=== PATIENT | male | born 1945 | race Caucasian/White ===

== ENCOUNTER 2021-01-08 11:43 | Inpatient (IN) | payer MEDICARE, MEDICAID, SELFPAY ==
[2021-01-08] VITALS (44 sets, daily range): BP systolic 71–110; BP diastolic 47–68; PULSE 49–77; RESP 9–20; TEMP 36.2–36.5; O2SAT 91–98; BMI 22.1
--- NOTE | ~2021-01-08 | CT_ITS ---
EXAMINATION: CTA abdomen pelvis DATE: 01/14/2021 08:28 INDICATION: Aortic aneurysm. Assess for dissection. Septic shock. TECHNIQUE: Computed tomographic angiography (CTA) of the abdomen and pelvis was performed with 100 mL Omnipaque-350 intravenous contrast. Additional 3D reconstructions utilizing rotating maximum intensi ty projection (MIP) were performed. Automated exposure control and iterative reconstruction technique were employed. The dose-length product was 340.48 mGy-cm. COMPARISON: 01/08/2021 FINDINGS: Small bilateral dependently layering pleural effusions with mild dependent compressive atelectasis in the bilateral lower lobes. Elevation of the left hemidiaphragm. Heart size is normal. Atheroscleroti c coronary artery calcifications. No pericardial effusion. Visualized portions of the ascending and d escending thoracic aorta are normal in caliber. Cholecystectomy clips at the gallbladder fossa. Liver , spleen, pancreas, bilateral adrenal glands and kidneys are normal. Bowels including the appendix ar e normal. Small amount of gas within the otherwise normal-appearing bladder. Correlate clinically for recent Jovel catheterization or instrumentation. No free intraperitoneal gas or fluid. No pathologic ally enlarged abdominal or pelvic lymphadenopathy. Small fat-containing left inguinal hernia. Moderat e thoracolumbar spondylosis. Chronic mild anterior wedging at T11-L1. Fusiform infrarenal abdominal aortic aneurysm measuring 4.6 x 5.0 cm in maximal transaxial dimensions measured orthogonal to the axis of flow 3.1 cm. . No aortic dissection. Penetrating atherosclerotic ulcer with associated saccular aneurysm at the distalmost right common iliac artery. The combined art leonard and saccular aneurysm measures 3.1 x 3.1 cm in maximal diameter. There is a severe, greater than 70% stenosis at the origin of the right internal iliac artery. Mild stenosis at the origin of the lef t internal iliac artery with poststenotic dilation measuring up to 1.8 cm maximal diameter. IMPRESSION: 1. 5.0 cm fusiform infrarenal abdominal aortic aneurysm without dissection. 2. Penetrating atherosclerotic ulcer with associated saccular aneurysm at the distal right common berenice ac artery which measures up to 3.1 cm in maximal diameter. 3. Small bilateral pleural effusions. 4. Elevation of the left hemidiaphragm suspicious for left phrenic nerve palsy. 5. Small amount of gas in the bladder. Correlate for recent instrumentation or Jovel catheterization and with urinalysis as clinically indicated. Reviewed, dictated and finalized at location A. GER PAYMENT IMPRESSION: 1. 5.0 cm fusiform infrarenal abdominal aortic aneurysm without dissection. 2. Penetrating atherosclerotic ulcer with associated saccular aneurysm at the d istal right common iliac artery which measures up to 3.1 cm in maximal diameter . 3. Small bilateral pleural effusions. 4. Elevation of the left hemidiaphragm suspicious for left phrenic nerve palsy. 5. Small amount of gas in the bladder. Correlate for recent instrumentation or Jovel catheterization and with urinalysis as clinically indicated.
--- NOTE | ~2021-01-08 | US_ITS ---
EXAMINATION: US renal BI DATE: 01/09/2021 07:51 INDICATION: Acute kidney injury TECHNIQUE: Multiple grayscale and Doppler ultrasound images of the kidneys were obtained. COMPARISON: None. FINDINGS: The right kidney measures 10.4 x 4.1 x 4.9 cm. The left kidney measures 10.2 x 4.8 x 4.3 cm . The kidneys demonstrate normal parenchymal echogenicity. There is no hydronephrosis. The bladder is decompressed by Jovel catheter. IMPRESSION: 1. Normal kidneys without hydronephrosis. Reviewed, dictated and finalized at location A. COMMUNICATION ENGINEER
--- NOTE | ~2021-01-08 | CT_ITS ---
EXAMINATION: CT brain wo con INDICATION: Altered mental status COMPARISON: None TECHNIQUE: Standard unenhanced head CT. The dose-length product (DLP) was 681.00 mGy-cm. The mA was a djusted according to patient size. Iterative reconstruction technique was employed. FINDINGS: There is no acute intraparenchymal hemorrhage. No evidence of mass lesion. No evidence of a cute infarction. 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 There is mild periven tricular and subcortical hypodensity probably related to small vessel ischemic disease. There is mild prominence of the sulci and ventricles related to cerebral atrophy. Intracranial calcified cerebral atherosclerosis is noted. There are no extra-axial collections. There is no mass effect or midline sh ift. Changes in the globes are likely from ocular lens surgery. There is mild mucosal thickening of t he paranasal sinuses. IMPRESSION: 1. No acute intracranial abnormality. 2. Age related findings. Reviewed, dictated and finalized at location A. ICAL THERAPY TEACHER
--- NOTE | ~2021-01-08 | XR_ITS ---
EXAMINATION: XR chest 1V INDICATION: Transient alteration of awareness TECHNIQUE: AP view of the chest is obtained. COMPARISON: None available FINDINGS: There is opacification of the left mid and lower lung zone. There appears to be elevation o f the left hemidiaphragm. The heart size is normal. No pneumothorax is identified. The transverse col on is in expected position. Surgical clips in the right upper quadrant are likely from prior cholecys tectomy. IMPRESSION: 1. Apparent elevation of the left diaphragm with likely atelectasis of the left lung base. Reviewed, dictated and finalized at location A. CAL FILE CLERK
--- NOTE | ~2021-01-08 | CT_ITS ---
EXAMINATION: CT abdomen pelvis wo con DATE: 01/08/2021 14:14 INDICATION: Abdomen pain. Altered mental status. TECHNIQUE: Computed tomography (CT) of the abdomen and pelvis was performed without intravenous contr ast. The dose-length product was 480.34 mGy-cm. Automated exposure control and iterative reconstructi on technique were employed. COMPARISON: No prior studies for comparison. FINDINGS: Elevated left diaphragm. There is left lower lobe airspace consolidation which may represen t atelectasis or pneumonia. No significant pleural or pericardial effusion. Heart size normal. Small hiatal hernia. Status post cholecystectomy. The liver, spleen, adrenal glands and kidneys are unremarkable. There is an infrarenal abdominal aortic aneurysm measuring 5 x 4.7 cm. There is an aneurysm of the right comm on iliac artery measuring 2.8 cm. No evidence for retroperitoneal hemorrhage. No free air. Moderate t horacic and lumbar spondylosis. There is Jovel catheter in the bladder with iatrogenic bladder gas. N o abnormal pelvic masses or fluid collections. IMPRESSION: 1. Infrarenal abdominal aortic aneurysm measuring 5 cm. 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 2: Left lower lobe airspace disease which may represent atelectasis and/or pneumonia. 3: Elevated left diaphragm, suspicious for phrenic nerve paralysis. Reviewed, dictated and finalized at location A. ER HOUSE SUPERVISOR IMPRESSION: 1. Infrarenal abdominal aortic aneurysm measuring 5 cm. Right common iliac ezequiel ry aneurysm measuring 2.8 cm. 2: Left lower lobe airspace disease which may represent atelectasis and/or pneu monia. 3: Elevated left diaphragm, suspicious for phrenic nerve paralysis.
--- NOTE | 2021-01-08 11:54 | ECG_ITS ---
Measurements Intervals [place] Rate: 63 P: -3 WI: 121 QRS: 22 QRSD: 99 T: 65 QT: 448 QTc: 460 Interpretive Statements SINUS RHYTHM BASELINE ARTIFACT- I, II, III, AVR, AVL, AVF NORMAL ECG Electronically Signed On 01-08-2021 14:33:34 EMBROIDERY MACHINE OPERATOR by Cortes Felix D.O.
--- NOTE | 2021-01-08 12:11 | ED.GENADULT ---
HPI - General Adult General Chief complaint: Altered Mental Status Stated complaint: AMS Time Seen by Provider: 01/08/21 12:01 Source: RN notes reviewed History of Present Illness HPI narrative: Patient presents to emergency department from [facility] via EMS for altered mental status. Per staff the patient is normally ANO x2-3. The patient was found to be more lethargic on rounds this morning. Patient is laying in bed he will open his eyes to painful stimuli he is able to tell me his name and falls back asleep. Patient was recently treated for urinary tract infection. I did asked the patient if he has any pain he states all over but is unable to localize any areas patient is unable to give any other history Related Data Home Medications Medication Instructions Recorded Confirmed acetaminophen [Tylenol] 325 mg PO ONCE 01/08/21 01/08/21 amlodipine 10 mg PO DAILY 01/08/21 01/08/21 apixaban [Eliquis] 2.5 mg PO DAILY 01/08/21 01/08/21 aspirin [Adult Aspirin] 81 mg PO DAILY 01/08/21 01/08/21 atorvastatin 20 mg PO HS 01/08/21 01/08/21 baclofen 5 mg PO TID 01/08/21 01/08/21 cholecalciferol (vitamin D3) 25 mcg PO DAILY 01/08/21 01/08/21 [Vitamin D3] darifenacin 15 mg PO DAILY 01/08/21 01/08/21 docusate sodium 100 mg PO DAILY PRN 01/08/21 01/08/21 escitalopram oxalate 10 mg PO DAILY 01/08/21 01/08/21 hydrocodone-acetaminophen 1 tablet PO BID PRN 01/08/21 01/08/21 isosorbide mononitrate 30 mg PO DAILY 01/08/21 01/08/21 lisinopril 20 mg PO DAILY 01/08/21 01/08/21 loperamide 2 mg PO Q4H PRN 01/08/21 01/08/21 magnesium hydroxide [Milk of 15 ml PO BID PRN 01/08/21 01/08/21 Magnesia] melatonin 3 mg PO HS PRN 01/08/21 01/08/21 meloxicam 7.5 mg PO DAILY 01/08/21 01/08/21 metformin 1,000 mg PO DAILY 01/08/21 01/08/21 metoprolol succinate 50 mg PO DAILY 01/08/21 01/08/21 montelukast 10 mg PO DAILY 01/08/21 01/08/21 omeprazole 40 mg PO DAILY 01/08/21 01/08/21 ondansetron 4 mg PO Q6H 01/08/21 01/08/21 sucralfate [Carafate] 1 g PO BID 01/08/21 01/08/21 tamsulosin [Flomax] 0.4 mg PO DAILY 01/08/21 01/08/21 Allergies Allergy/AdvReac Type Severity Reaction Status Date / Time Sulfa (Sulfonamide Allergy Unknown Verified 01/08/21 12:01 Antibiotics) sulfamethoxazole Allergy Unknown Verified 01/08/21 12:01 [From Sulfamethoxazole-Trimethoprim] trimethoprim Allergy Unknown Verified 01/08/21 12:01 [From Sulfamethoxazole-Trimethoprim] Review of Systems Review of Systems: ROS unobtainable: Yes unobtainable due to medical condition PMFSH Past Medical History Medical History (Updated 01/08/21 @ 21:58 by Chandler Barrientos DO) Hypercholesterolemia Social History Social History (Updated 01/08/21 @ 12:26 by Chandler Barrientos DO) Smoking status: Former smoker Tobacco type: cigarettes Substance use: never Spiritual care concerns: No Exam Narrative: APPEARANCE: Laying in bed with eyes closed unresponsive to verbal stimuli will respond to painful stimuli EYES: PERRL HEENT: Normocephalic, atraumatic, oral mucosa dry RESPIRATORY: No respiratory distress Clear to auscultation bilaterally with no rhonchi wheezing or rales. CARDIOVASCULAR: Regular rate and rhythm without murmurs rubs or gallops. ABDOMINAL: Soft, nontender, nondistended, no rebound or guarding MUSCULOSKELETAl: Moves all extremities. No clubbing, cyanosis or edema. NEURO: Laying in bed with eyes closed unresponsive to verbal stimuli with painful stimuli will open eyes able to tell me his name then fall back asleep moves all extremities SKIN:: Warm, dry. No rashes lesions or abrasions Course Course Emergency Course: Patient sister is present in the emergency department discussed the grave nature of the patient's condition we discussed his renal failure and UTI and septic shock. Discussed treatment options at this time she states the patient has children no definitive POA and the oldest daughter is present in town and came to the emergency department. A
[2021-01-08] MEDS: SODIUM CHLORIDE 0.9% IV 500 ML 999 ML IV CONT (12:20)
[2021-01-08 12:26] LABS: Add Urine Microscopic? YES; Appearance Urine Cloudy (Clear); Bacteria Urine Trace /hpf; Bilirubin Urine Negative (Negative); Blood Urine 1+ (Negative); Color Urine Yellow (Yellow); Glucose Urine UA Negative (Negative); Ketones Urine Trace mg/dL (Negative); Leukocyte Esterase Ur 3+ LEU/UL (Negative); Mucus Urine Rare /lpf; Nitrate Urine Negative (Negative); Protein Urine 1+ mg/dL (Negative); Specific Grav Ur 1.015 (1.001-1.035); Squamous Epithelial Cell Urine Rare /hpf (Few); WBC Clumps Urine Present /HPF; WBC Urine >75 /hpf
[2021-01-08 12:40] LABS: Basophils Percent Auto 0.2 % (0.2-1.2); Eosinophils Percent Auto 0.3 % (0-4.4); Hematocrit 31.9 % (42.0-52.0); Hemoglobin 10.8 g/dL (14.0-18.0); Immature Granulocyte Absolute 0.04 K/mm3 (0.00-0.031); Immature Granulocyte Percent A 0.6 % (0-0.5); Lymphocytes Absolute Auto 1.11 K/mm3 (0.9-3.2); Lymphocytes Percent Auto 16.8 % (18.3-44.2); Mean Corpuscular HGB Conc 33.9 g/dl (32-36); Mean Corpuscular Hemoglobin 30.5 pg (26-34); Mean Corpuscular Volume 90.1 fl (80-100); Mean Platelet Volume 9.4 fl (7.4-10.4); Monocytes Absolute Auto 0.4 K/mm3 (0.1-0.6); Monocytes Percent Auto 6.2 % (2.6-8.5); Neutrophils Percent Auto 75.9 % (45.5-73.1); Platelet Count Result 218 k/mm3 (150-375); Red Blood Count 3.54 M/mm3 (4.6-6.20); Red Cell Distribution Width 13.5 % (11.5-14.5); White Blood Count 6.6 K/mm3 (4.5-10.0)
[2021-01-08 12:55] LABS: INR 1.2
[2021-01-08] MEDS: SODIUM CHLORIDE 0.9% IV 1,000 ML 999 ML IV CONT ×2 (12:55→13:18)
[2021-01-08 12:56] LABS: Partial Thromboplastin Time 33.2 SECONDS (22.3-36.8)
--- NOTE | 2021-01-08 12:58 | PC.NURSE ---
ERP made aware of pt. blood pressure
[2021-01-08 13:20] LABS: Lactic Acid Reflex 0.8 mmol/L (0.7-2.1)
[2021-01-08 13:21] LABS: Alanine Aminotransferase 15 U/L (4-50); Albumin Level 3.7 g/dL (3.5-5.1); Alkaline Phosphatase 47 U/L (38-126); Anion Gap 19 mmol/L (8-16); Aspartate Amino Transferase 16 U/L (17-59); Blood Urea Nitrogen 103 mg/dL (9-20); Calcium 9.2 mg/dL (8.4-10.2); Carbon Dioxide 18 mmol/L (22-30); Chloride 97 mmol/L (98-107); Estimated CRCL calculation 14 ml/min; Estimated Glomerular Filt Rate 15; Glucose 116 mg/dL (65-110); Potassium 4.8 mmol/L (3.4-5.0); Sodium 134 mmol/L (137-145)
[2021-01-08 13:24] LABS: Acetaminophen < 10 ug/mL (10-30); Ammonia < 9 umol/L (9-30); Ethanol < 10 mg/dL (<10); Salicylate < 1.0 mg/dL (2-20)
[2021-01-08 13:33] LABS: Lactic Acid Reflex 0.9 mmol/L (0.7-2.1)
[2021-01-08 13:57] LABS: Alanine Aminotransferase 15 U/L (4-50); Albumin Level 3.7 g/dL (3.5-5.1); Alkaline Phosphatase 48 U/L (38-126); Anion Gap 18 mmol/L (8-16); Aspartate Amino Transferase 18 U/L (17-59); Bilirubin,Total 0.9 mg/dL (0.2-1.3); Blood Urea Nitrogen 102 mg/dL (9-20); Calcium 9.3 mg/dL (8.4-10.2); Carbon Dioxide 19 mmol/L (22-30); Chloride 97 mmol/L (98-107); Estimated CRCL calculation 13 ml/min; Estimated Glomerular Filt Rate 14; Glucose 117 mg/dL (65-110); Potassium 4.8 mmol/L (3.4-5.0); Sodium 134 mmol/L (137-145)
--- NOTE | 2021-01-08 14:00 | PC.NURSE ---
Blood draw tech called lab x2 for blood cultures no dentures lab technician came to draw cultures.
[2021-01-08] MEDS: NALOXONE HCL 0.4 MG/ML VIAL IV PUSH (14:38)
--- NOTE | 2021-01-08 14:40 | PC.NURSE ---
Addendum entered by Carolina Wagner RN 01/08/21 14:44: THIS INFORMATION WAS ALSO DISCUSSED WITH DR RIVERA. Original Note: 1650- SPOKE WITH DAUGHTER ROBERT THIS CLINICAL DIRECTOR WAS INFORMED PT IS A DNR AND DOES NOT WANT A CENTRAL LINE PLACED.
[2021-01-08 14:55] LABS: Alveolar/Arterial O2 Gradient 24.9 mmHg; Base Excess ABG -11.8 mEq/l (+/-2.0); Fractional Inspired Oxygen 21 %; HCO3 ABG 15.5 mEq/l (22.0-26.0); Oxygen Content ABG 14.3 %vol (16.0-22.0); Oxygen Saturation ABG 92.5 % (95.0-100.0); Oxyhemoglobin 90.6 % THb (90.0-100.0); PCO2 ABG 40.2 mmHg (35.0-45.0); PO2 ABG 76.7 mmHg (80.0-100.0); PO2 FiO2 Ratio Arterial Blood 3.65 %; Total Hemoglobin 11.2 g/dL (12.0-18.0)
[2021-01-08 14:58] LABS: Device ROOM AIR; Site Drawn RIGHT BRACHIAL; pH ABG 7.204 (7.350-7.450)
--- NOTE | 2021-01-08 15:00 | PC.NURSE ---
pillowcase turner called lab to draw cultures no one came down.
[2021-01-08] MEDS: SODIUM CHLORIDE 0.9% IV 1,000 ML 125 ML IV CONT (15:52)
--- NOTE | 2021-01-08 17:10 | PM.IMHP ---
H&P: HPI History of Present Illness Date/Time: 01/08/21 17:10 Chief Complaint: Altered mental status. Narrative: This is a 75-year-old male with history of coronary artery disease, paroxysmal atrial fibrillation, hypertension, hyperlipidemia, COPD, GERD, and diabetes who presented to the emergency department earlier today via EMS from [facility] for evaluation of altered mental status. He is only responsive to noxious stimuli at the time my evaluation and as such all of the following is obtained via a review of his electronic medical record as well as discussions with his sister Dania and eldest daughter Trini who are at bedside. The patient's was put in the care home within the last year due to dementia and the patient himself checked himself into the care home about 6 months ago due to the declining condition, more specifically he has been having a difficult time walking due to back and leg pain from a fall he had many months ago. At baseline the patient is alert and oriented x4 and his main concern is ensuring that his is well taken care of. Family members have noticed a decline in his condition since going to the care home and he does not seem to be eating and drinking well. In fact he was hospitalized about 5 weeks ago at [facility] with confusion at which time he was found to have an acute kidney injury. His mentation and renal function reportedly improved with IV fluids. Since that time it sounds as though he continues to have a poor appetite and over the last several days his sister has noticed that he has appeared confused, for instance picking at things on his hands that are not there, and she thinks he has looked quite dehydrated. Today staff found him ?lethargic? on morning rounds, responsible only to painful stimuli and he was sent here for evaluation. On arrival to the emergency department he did wake and was able to tell the ED physician his name however he fell right back asleep. Pertinent labs done on arrival to the emergency department included BUN and creatinine of 102 and 4.10 respectively. His blood pressure has been running in the 70s to 80s systolic without much improvement despite 3 L IV fluid bolus. His urinalysis is compatible with UTI and it is noted that he had to be straight cathed yesterday due to decrease in urine output though I believe he did not have much urine with that. Brain CT was unremarkable. Chest x-ray showed apparent elevation of left diaphragm with likely atelectasis at the left base. A subsequent CT of the abdomen pelvis showed an infrarenal abdominal aortic aneurysm measuring 5 cm which according to the sister is unknown finding, and left lower space disease which may be atelectasis and/or pneumonia. After long discussions with the patient's sister and daughter, they have decided against central line however are okay with peripheral Todd-Synephrine, IV fluids, and antibiotics overnight to see how he does however they do not want him resuscitated should he go into cardiac or respiratory arrest. They do not think he has had any sick contacts or exposure to those positive for COVID 19. Review of Systems Review of Systems: Unable to obtain given current clinical condition as above. 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 Arthritis Benign prostatic hyperplasia Chronic anticoagulation Chronic back pain Chronic obstructive pulmonary disease Coronary artery disease Depression with anxiety Gastroesophageal reflux disease Hypercholesterolemia Hyperlipidemia Hypertension Paroxysmal atrial fibrillation Type 2 diabetes mellitus Surgical History Surgical History (Updated 01/09/21 @ 01:23 by Ashley Carlin PA-C) History of cholecystectomy History of coronary artery stent plac
[2021-01-08] MEDS: SODIUM BICARBONATE 8.4% 50 MEQ/50 ML SYRINGE IV PUSH (18:40)
[2021-01-08] MEDS: SODIUM BICARBONATE 8.4% 100 MEQ in DEXTROSE 5% 1,000 ML 1,000 ML 75 MEQ IV CONT ×2 (18:57→21:18)
--- NOTE | 2021-01-08 19:30 | PC.NURSE ---
Assumed care of pt at this time, report received from Sushma HERNÁNDEZ. Pt resting on stretcher, awake to verbal stimuli. Updated pt and family on POC.
--- NOTE | 2021-01-08 19:35 | PC.NURSE ---
Attempted to give report to ICU at this time. Was informed receiving RN was in room with pt, and will call back when available.
--- NOTE | 2021-01-08 20:10 | ADMGEN ---
This patient, Eric Avila, was admitted to Intensive Care Unit-1. Patient/family oriented to hospital policies and general routines including ID bracelet, bed and alarms, visiting hours, pain management, procedures, bathroom and other care routines, personal items, smoking policy, room service/diet, and visiting hours. Information on how to activate the Rapid Response Team has been discussed. Patient/Family are encouraged to report perceived risks to care and to ask questions if they do not understand what they are told or what they should do.
[2021-01-09] VITALS (17 sets, daily range): BP systolic 104–148; BP diastolic 66–95; PULSE 49–79; RESP 12–19; TEMP 36.1–36.4; O2SAT 91–100
[2021-01-09 00:15] LABS: Glucose Point of Care 150 mg/dl (65-105)
[2021-01-09] MEDS: ENOXAPARIN 80 MG/0.8 ML SYRINGE 65 MG SUB-Q ×2 (02:45→21:17)
[2021-01-09 04:08] LABS: Amphetamine Screen Urine Negative (Negative); Barbiturate Screen Urine Negative (Negative); Benzodiazepines Screen Urine Negative (Negative); Cannabinoid Screen Urine Negative (Negative); Cocaine Screen Urine Negative (Negative); Methadone Screen Urine Negative (Negative); Opiate Screen Urine Negative (Negative); Phencyclidine Screen Urine Negative (Negative)
[2021-01-09 04:12] LABS: Creatinine Urine 48.5 mg/dL; Total Protein Urine Random 28 mg/dL; Ur Ttl Prot Creatinine Ratio 0.58 mg/mg (0-0.20)
[2021-01-09 04:18] LABS: Basophils Percent Auto 0.1 % (0.2-1.2); Eosinophils Absolute Auto 0.2 K/mm3 (0-0.3); Eosinophils Percent Auto 2.3 % (0-4.4); Hematocrit 33.8 % (42.0-52.0); Hemoglobin 11.6 g/dL (14.0-18.0); Immature Granulocyte Absolute 0.04 K/mm3 (0.00-0.031); Immature Granulocyte Percent A 0.6 % (0-0.5); Lymphocytes Percent Auto 20.2 % (18.3-44.2); Mean Corpuscular HGB Conc 34.3 g/dl (32-36); Mean Corpuscular Hemoglobin 30.2 pg (26-34); Mean Platelet Volume 9.6 fl (7.4-10.4); Monocytes Absolute Auto 0.6 K/mm3 (0.1-0.6); Neutrophils Absolute Auto 4.7 K/mm3 (1.3-6.7); Neutrophils Percent Auto 67.8 % (45.5-73.1); Platelet Count Result 256 k/mm3 (150-375); Red Blood Count 3.84 M/mm3 (4.6-6.20); Red Cell Distribution Width 13.6 % (11.5-14.5); White Blood Count 6.9 K/mm3 (4.5-10.0)
[2021-01-09 04:41] LABS: Potassium Urine Random 8.3 meq/L; Sodium Urine Random 24 meq/L
[2021-01-09 04:53] LABS: Alanine Aminotransferase 14 U/L (4-50); Albumin Level 3.2 g/dL (3.5-5.1); Alkaline Phosphatase 47 U/L (38-126); Anion Gap 11 mmol/L (8-16); Aspartate Amino Transferase 16 U/L (17-59); Bilirubin,Total 0.7 mg/dL (0.2-1.3); Blood Urea Nitrogen 89 mg/dL (9-20); CRP 0.6 mg/dL (<1.0); Calcium 8.3 mg/dL (8.4-10.2); Carbon Dioxide 24 mmol/L (22-30); Chloride 101 mmol/L (98-107); Creatine Kinase 71 U/L (55-170); Estimated CRCL calculation 17 ml/min; Estimated Glomerular Filt Rate 20; Glucose 154 mg/dL (65-110); Magnesium 1.7 mg/dL (1.6-2.3); Phosphorus 4.7 mg/dL (2.5-4.5); Potassium 3.8 mmol/L (3.4-5.0); Sodium 136 mmol/L (137-145)
[2021-01-09 05:15] LABS: Thyroid Stimulating Hormone Reflex 0.291 uIU/mL (0.465-4.68)
[2021-01-09 05:35] LABS: Erythrocyte Sedimentation Rate 28 mm/hr (0-20)
[2021-01-09 07:50] LABS: Free T4 Free Thyroxine Reflex 1.82 ng/dL (0.78-2.19)
--- NOTE | 2021-01-09 09:13 | WPDCNINT ---
Assessment and Plan Assessment and plan (1) Septic shock: Code(s): A41.9 - Sepsis, unspecified organism; R65.21 - Severe sepsis with septic shock Status: Acute Assessment and Plan: Patient presented with altered mental status, found to be hypotension which was refractory to IV fluids, patient's family did not want to be very aggressive with CPR, mechanical ventilation or central line. Patient was started on phenylephrine via peripheral access -wean phenylephrine to maintain a MAP > 65 mmHg -lactic acid is normal -patient currently on room air with adequate O2 sats -urine output has been adequate, creatinine improving -blood cultures and urine cultures have been obtained and pending -continue ceftriaxone, azithromycin (initiated on 01/08/2021) (2) Acute UTI: Code(s): N39.0 - Urinary tract infection, site not specified Status: Acute Assessment and Plan: UA was reflective of UTI, urine cultures are pending, continue antibiotics as above (3) Acute renal failure: Code(s): N17.9 - Acute kidney failure, unspecified Status: Acute Assessment and Plan: Patient has been not eating or drinking well at the [facility] according the medical records -presented with acute kidney injury with a creatinine of 4.10 and a BUN of 103. This is multifactorial, patient could have a chronic renal failure of component given history of diabetes, essential hypertension, coronary artery disease, atrial fibrillation. Acute injury is likely related to hypotension, hypovolemia, decreased p.o. intake -currently on Todd-Synephrine, maintain adequate mean arterial pressures for end organ perfusion -continue to monitor renal function, electrolytes and urine output -renal ultrasound was ordered by the hospitalist, is pending report. (4) Paroxysmal atrial fibrillation: Code(s): I48.0 - Paroxysmal atrial fibrillation Status: Acute Assessment and Plan: Has a history of paroxysmal AFib, on Eliquis at the [facility] -currently patient is in sinus bradycardia, will hold all rate control medications at this time (5) Gastroesophageal reflux disease: Code(s): K21.9 - Gastro-esophageal reflux disease without esophagitis Status: Acute Assessment and Plan: Continue Protonix (6) Abdominal aortic aneurysm: Code(s): I71.4 - Abdominal aortic aneurysm, without rupture Status: Acute Assessment and Plan: Continue to monitor (7) Hypertension: Code(s): I10 - Essential (primary) hypertension Status: Acute Assessment and Plan: History of essential hypertension, currently in septic shock with low blood pressures and vasopressors -hold all antihypertensive (8) Type 2 diabetes mellitus: Code(s): E11.9 - Type 2 diabetes mellitus without complications Status: Acute Assessment and Plan: Will start Accu-Cheks and sliding scale insulin (9) DVT prophylaxis: Code(s): Z29.9 - Encounter for prophylactic measures, unspecified Status: Acute Assessment and Plan: Patient has been started on therapeutic enoxaparin daily Additional Plan Nutrition: Currently NPO Code status: Do not resuscitate Critical care time spent: 44 minute This dictation may have been done utilizing a voice recognition system. Attempts have been made to correct errors. However, there may be uncorrected grammatical, spelling, and recognition errors present. Due to a high probability of clinically significant, life threatening deterioration, the patient required my highest level of preparedness to intervene emergently and I personally spent this critical care time directly and personally managing the patient. This critical care time included obtaining a history; examining the patient; pulse oximetry; ordering and review of studies; arranging urgent treatment with development of a management plan; evaluation of patient's response to treatment; frequent reasse
[2021-01-09] MEDS: SODIUM BICARBONATE 8.4% 150 MEQ in DEXTROSE 5% 1,000 ML 950 ML 75 MEQ IV CONT ×2 (09:26→23:51)
[2021-01-09] MEDS: PANTOPRAZOLE SODIUM IV 40 MG VIAL IV PUSH (10:35)
[2021-01-09 12:02] LABS: Glucose Point of Care 164 mg/dl (65-105)
--- NOTE | 2021-01-09 15:30 | PC.NURSE ---
Patient transferred to room 261. Report to Demi HERNÁNDEZ. Family updated on patient leaving ICU
[2021-01-09 21:29] LABS: Glucose Point of Care 192 mg/dl (65-105)
[2021-01-10] VITALS (12 sets, daily range): BP systolic 137–189; BP diastolic 67–100; PULSE 81–120; RESP 14–20; TEMP 36–37.5; O2SAT 91–95
[2021-01-10 05:26] LABS: Glucose Point of Care 153 mg/dl (65-105)
[2021-01-10 05:35] LABS: Basophils Percent Auto 0.3 % (0.2-1.2); Eosinophils Absolute Auto 0.1 K/mm3 (0-0.3); Eosinophils Percent Auto 1.9 % (0-4.4); Hematocrit 36.5 % (42.0-52.0); Hemoglobin 12.6 g/dL (14.0-18.0); Immature Granulocyte Absolute 0.05 K/mm3 (0.00-0.031); Immature Granulocyte Percent A 0.7 % (0-0.5); Lymphocytes Percent Auto 17.5 % (18.3-44.2); Mean Corpuscular HGB Conc 34.5 g/dl (32-36); Mean Corpuscular Hemoglobin 30.1 pg (26-34); Mean Corpuscular Volume 87.3 fl (80-100); Mean Platelet Volume 9.8 fl (7.4-10.4); Monocytes Absolute Auto 0.4 K/mm3 (0.1-0.6); Monocytes Percent Auto 6.4 % (2.6-8.5); Neutrophils Percent Auto 73.2 % (45.5-73.1); Platelet Count Result 221 k/mm3 (150-375); Red Blood Count 4.18 M/mm3 (4.6-6.20); Red Cell Distribution Width 13.4 % (11.5-14.5); White Blood Count 6.9 K/mm3 (4.5-10.0)
[2021-01-10 05:43] LABS: Lactic Acid Reflex 0.8 mmol/L (0.7-2.1)
[2021-01-10 06:03] LABS: Alanine Aminotransferase 13 U/L (4-50); Albumin Level 3.3 g/dL (3.5-5.1); Alkaline Phosphatase 53 U/L (38-126); Anion Gap 6 mmol/L (8-16); Aspartate Amino Transferase 16 U/L (17-59); Bilirubin,Total 0.7 mg/dL (0.2-1.3); Blood Urea Nitrogen 63 mg/dL (9-20); Calcium 8.7 mg/dL (8.4-10.2); Carbon Dioxide 36 mmol/L (22-30); Chloride 98 mmol/L (98-107); Estimated CRCL calculation 26 ml/min; Estimated Glomerular Filt Rate 33; Glucose 171 mg/dL (65-110); Magnesium 1.8 mg/dL (1.6-2.3); Potassium 3.4 mmol/L (3.4-5.0); Sodium 140 mmol/L (137-145)
[2021-01-10 06:08] LABS: Hemoglobin A1C 6.3 % (<5.7)
--- NOTE | 2021-01-10 08:03 | PM.IMPN ---
Progress Note: A&P Assessment and Plan (1) Septic shock: Code(s): A41.9 - Sepsis, unspecified organism; R65.21 - Severe sepsis with septic shock Status: Acute Assessment and Plan: Patient presented with AMS with hypotension refractory to IVF. Phenylephrine used as family wanted DNR and no central line. UA notes UTI w/ BUN > 100 and Creatinine 4 on presentation. Septic shock was likely due to urinary tract infection. This has resolved with treatment of UTI. BCX w/ no growth. UCX with growth of mixed chris so no sensitivities or speciation given. With patient presentation will continue for minimum 3 doses of ceftriaxone. -Ceftriaxone #3 today -Azithromycin #3 today (2) Acute metabolic encephalopathy: Code(s): G93.41 - Metabolic encephalopathy Status: Acute Assessment and Plan: Sepsis vs Uremia for the likely etiology. LFT and ammonia normal at presentation. Patient mentation seems to have improved with treatment of UTI and improvement of renal function. BUN 63 today. (3) Urinary tract infection: Code(s): N39.0 - Urinary tract infection, site not specified Status: Acute Assessment and Plan: UCX with mix chris recommending repeat, but at this time the patient has been on antibiotics for 3 days. Will complete treatment of UTI as patient has had significant improvement in clinical status. (4) Acute renal failure: Code(s): N17.9 - Acute kidney failure, unspecified Status: Acute Assessment and Plan: Hx of BPH with urinary retention and given history of DM and HTN this is likely an acute exacerbation of chronic kidney disease. Chronic NSAID uses also likely to be contributing factor. GFR 33. CO2 36 today. -Discontinue sodium bicarbonate -Nephrology Consult (5) Benign prostatic hyperplasia: Code(s): N40.0 - Benign prostatic hyperplasia without lower urinary tract symptoms Status: Acute Assessment and Plan: Patient presented with urinary retention likely 2/2 to BPH. Continue tamsulosin. (6) Gastroesophageal reflux disease: Code(s): K21.9 - Gastro-esophageal reflux disease without esophagitis Status: Acute Assessment and Plan: Takes omeprazole 40 mg po daily at home. Continue PPI inpatient. (7) Chronic obstructive pulmonary disease: Code(s): J44.9 - Chronic obstructive pulmonary disease, unspecified Status: Acute Assessment and Plan: Not on any medication for this at this time. (8) Paroxysmal atrial fibrillation: Code(s): I48.0 - Paroxysmal atrial fibrillation Status: Acute Assessment and Plan: On apixaban and takes metoprolol 50 mg BID at nursing facility. Continue home meds. (9) Hyperlipidemia: Code(s): E78.5 - Hyperlipidemia, unspecified Status: Acute Assessment and Plan: ON atorvastatin 20 mg po qhs. Continue home medication once not NPO. (10) Hypertension: Code(s): I10 - Essential (primary) hypertension Status: Acute Assessment and Plan: Takes amlodipine 10 mg po daily, lisinopril 20 mg and metoprolol 50 mg BID. -Hold BP medication for now (11) Type 2 diabetes mellitus: Code(s): E11.9 - Type 2 diabetes mellitus without complications Status: Acute Assessment and Plan: Patient takes metformin 1,000 mg BID at home. -Hold as patient NPO -accuchecks -[facility] (12) Coronary artery disease: Code(s): I25.10 - Atherosclerotic heart disease of [place] coronary artery without angina pectoris Status: Acute Additional Plan On isosoride monitrate 30 mg po dialy, atorvastatin 20 mg po daily. -Patient is NPO Subjective Date/time seen: Date of service 01/10/21 08:03 Patient wakes easily and when asked if he has pain says yes but cannot tell me the location of the pain. Review of Systems Psychiatric: Psychiatric: Reports confusion Exam Narrative: GENERAL: NAD, cooperative HEENT:
[2021-01-10] MEDS: PANTOPRAZOLE SODIUM IV 40 MG VIAL IV PUSH (09:17)
[2021-01-10 12:04] LABS: Glucose Point of Care 151 mg/dl (65-105)
[2021-01-10 17:30] LABS: Glucose Point of Care 170 mg/dl (65-105)
[2021-01-10] MEDS: METOPROLOL TARTRATE INJ 5 MG/5 ML VIAL IV PUSH (17:56)
[2021-01-10] MEDS: SODIUM BICARBONATE 8.4% 150 MEQ in DEXTROSE 5% 1,000 ML 950 ML 75 MEQ IV CONT (18:03)
[2021-01-10] MEDS: ENOXAPARIN 80 MG/0.8 ML SYRINGE 65 MG SUB-Q (21:44)
[2021-01-10] MEDS: hydrALAZINE HCL 20 MG/ML VIAL 10 MG IV PUSH (21:45)
[2021-01-11] VITALS (16 sets, daily range): BP systolic 152–169; BP diastolic 93–105; PULSE 63–110; RESP 14–20; TEMP 36.6–37.2; O2SAT 93–100; BMI 21.1
[2021-01-11 00:31] LABS: Glucose Point of Care 158 mg/dl (65-105)
[2021-01-11 05:18] LABS: Glucose Point of Care 154 mg/dl (65-105)
[2021-01-11] MEDS: hydrALAZINE HCL 20 MG/ML VIAL 10 MG IV PUSH (05:30)
[2021-01-11 06:11] LABS: Basophils Percent Auto 0.2 % (0.2-1.2); Eosinophils Percent Auto 0.4 % (0-4.4); Hematocrit 37.7 % (42.0-52.0); Hemoglobin 12.8 g/dL (14.0-18.0); Immature Granulocyte Absolute 0.04 K/mm3 (0.00-0.031); Immature Granulocyte Percent A 0.5 % (0-0.5); Lymphocytes Absolute Auto 1.34 K/mm3 (0.9-3.2); Lymphocytes Percent Auto 16.6 % (18.3-44.2); Mean Corpuscular Hemoglobin 30.1 pg (26-34); Mean Corpuscular Volume 88.7 fl (80-100); Mean Platelet Volume 9.5 fl (7.4-10.4); Monocytes Absolute Auto 0.5 K/mm3 (0.1-0.6); Monocytes Percent Auto 6.7 % (2.6-8.5); Neutrophils Absolute Auto 6.1 K/mm3 (1.3-6.7); Neutrophils Percent Auto 75.6 % (45.5-73.1); Platelet Count Result 198 k/mm3 (150-375); Red Blood Count 4.25 M/mm3 (4.6-6.20); Red Cell Distribution Width 13.5 % (11.5-14.5); White Blood Count 8.1 K/mm3 (4.5-10.0)
[2021-01-11 06:46] LABS: Free T4 Free Thyroxine 1.23 ng/mL (0.78-2.19)
[2021-01-11 06:59] LABS: Thyroid Stimulating Hormone 0.966 uIU/mL (0.465-4.680)
[2021-01-11 07:09] LABS: HIV 1/2 Ab P24 Ag Result Negative (Negative)
--- NOTE | 2021-01-11 07:10 | PM.CNNEP ---
Assessment and Plan Assessment and plan (1) Acute kidney injury: Code(s): N17.9 - Acute kidney failure, unspecified Status: Acute Assessment and Plan: The patient has acute kidney injury. His baseline creatinine is not known, however he had has improved quite a bit. His renal ultrasound is normal. Urine electrolytes are non pre renal. Most likely he has renal failure from his low blood pressure and probably dehydration. He also has pyuria and even the blood cultures are negative may have some affect of infection on his kidneys as well. obstruction was ruled out by the ultrasound, however did he did have some urinary retention. He has a Jovel catheter in place. Glomerulonephritis is unlikely in this clinical scenario. Allergic interstitial nephritis is unlikely cause he was not on any new medications when he presented. Because his creatinine is improving with fluids we will continue the same therapy. (2) Metabolic acidosis: Code(s): E87.2 - Acidosis Status: Acute Assessment and Plan: He has metabolic acidosis. His anion gap was 18. His albumin was normal on admission. He probably had a combination of non-anion gap metabolic acidosis and anion gap metabolic acidosis, probably both from the renal failure. His lactic acid was normal even though he is on metformin. He is getting a bicarb drip now. His anion gap is down to 6 now and his bicarbonate is up to 36. I think we can stop the bicarb drip. The improvement in the acidosis is most likely due to the bicarb drip. His lower anion gap is most likely due to the drop in albumin. (3) Shock: Code(s): R57.9 - Shock, unspecified Status: Acute Assessment and Plan: His blood pressure is doing better. (4) Benign prostatic hyperplasia: Code(s): N40.0 - Benign prostatic hyperplasia without lower urinary tract symptoms Status: Acute Assessment and Plan: He has a Jovel catheter in place (5) Gastroesophageal reflux disease: Code(s): K21.9 - Gastro-esophageal reflux disease without esophagitis Status: Acute Assessment and Plan: He is on pantoprazole and off sucralfate. (6) Paroxysmal atrial fibrillation: Code(s): I48.0 - Paroxysmal atrial fibrillation Status: Acute Assessment and Plan: His rhythm is regular now. He is on anti coagulants. (7) Hypertension: Code(s): I10 - Essential (primary) hypertension Status: Acute Assessment and Plan: Blood pressure is doing better (8) Type 2 diabetes mellitus: Code(s): E11.9 - Type 2 diabetes mellitus without complications Status: Acute Assessment and Plan: On Accu-Cheks and sliding-scale insulin History of Present Illness Reason for Consult Consult date: 01/11/21 Chief Complaint Chief complaint: septic shock, UTI, acute renal failure metabolic e History of Present Illness Narrative: Romeo is a very unfortunate 75-year-old gentleman who has multiple medical problems including coronary artery disease, paroxysmal atrial fibrillation, hypertension, hyperlipidemia, vitamin-D deficiency, depression, arthritis, COPD, GERD, and diabetes. The patient lives in a snf. He developed altered mental status and so came to the hospital. His mental status was gradually worsening over the last few days. In the ER he was unresponsive. He was admitted to the ICU. His family made him a DNR are and also said no central line. They treated him supportively with IV fluids and a little bit of pressors. His creatinine and BUN were very high on admission but have improved with therapy. His blood pressure was also very low and this improved as well. There was some worry about sepsis. Cultures were done and these are negative. He was placed on antibiotics. His chest x-ray showed erase hemidiaphragm and this was felt to be due to atelectasis. Over the last few days his BUN and creatinine have impr
[2021-01-11 07:23] LABS: Vitamin B12 > 1000.0 pg/mL (239-931)
--- NOTE | 2021-01-11 07:31 | PM.IMPN ---
Progress Note: A&P Assessment and Plan (1) Septic shock: Code(s): A41.9 - Sepsis, unspecified organism; R65.21 - Severe sepsis with septic shock Status: Acute Assessment and Plan: Patient presented with AMS with hypotension refractory to IVF. Phenylephrine used as family wanted DNR and no central line. UA notes UTI w/ BUN > 100 and Creatinine 4 on presentation. Septic shock was likely due to urinary tract infection. This has resolved with treatment of UTI. BCX w/ no growth. UCX with growth of mixed chris so no sensitivities or speciation given. Will plan to complete antibiotic treatment after five days. -Ceftriaxone #4 today -Azithromycin #4 today (2) Acute metabolic encephalopathy: Code(s): G93.41 - Metabolic encephalopathy Status: Acute Assessment and Plan: Sepsis vs Uremia for the likely etiology. LFT and ammonia normal at presentation. Patient mentation seems to have improved with treatment of UTI and improvement of renal function but remains somewhat confused. (3) Urinary tract infection: Code(s): N39.0 - Urinary tract infection, site not specified Status: Acute Assessment and Plan: UCX with mix chris recommending repeat, but antibiotic were already started. Will complete treatment of UTI as patient has had significant improvement in clinical status. -Continue ceftraixone (4) Acute renal failure: Code(s): N17.9 - Acute kidney failure, unspecified Status: Acute Assessment and Plan: Hx of BPH with urinary retention and given history of DM and HTN this is likely an acute exacerbation of chronic kidney disease. Chronic NSAID uses also likely to be contributing factor. Renal US w/ normal kidney w/o hydronephrosis. Improved today. -BMP daily -Appreciate recs from Nephrology (5) Benign prostatic hyperplasia: Code(s): N40.0 - Benign prostatic hyperplasia without lower urinary tract symptoms Status: Acute Assessment and Plan: Patient presented with urinary retention likely 2/2 to BPH. Continue tamsulosin. (6) Gastroesophageal reflux disease: Code(s): K21.9 - Gastro-esophageal reflux disease without esophagitis Status: Acute Assessment and Plan: Takes omeprazole 40 mg po daily at home. Continue PPI inpatient. (7) Chronic obstructive pulmonary disease: Code(s): J44.9 - Chronic obstructive pulmonary disease, unspecified Status: Acute Assessment and Plan: Not on any medication for this at this time. (8) Paroxysmal atrial fibrillation: Code(s): I48.0 - Paroxysmal atrial fibrillation Status: Acute Assessment and Plan: On apixaban and takes metoprolol 50 mg BID at nursing facility. With improvement of renal function will start therapeutic anticoagulation today. Previously on weight based enoxaparin due to poor renal function. -Enoxaparin 61 mg BID -Patient unable to swallow apixaban at this time (9) Hyperlipidemia: Code(s): E78.5 - Hyperlipidemia, unspecified Status: Acute Assessment and Plan: ON atorvastatin 20 mg po qhs. Continue home medication once swallowing. (10) Hypertension: Code(s): I10 - Essential (primary) hypertension Status: Acute Assessment and Plan: Takes amlodipine 10 mg po daily, lisinopril 20 mg and metoprolol 50 mg BID. -Will start enalapril and IV metoprolol (11) Type 2 diabetes mellitus: Code(s): E11.9 - Type 2 diabetes mellitus without complications Status: Acute Assessment and Plan: Patient takes metformin 1,000 mg BID at home. -Hold as patient NPO -accuchecks -[facility] (12) Coronary artery disease: Code(s): I25.10 - Atherosclerotic heart disease of [place] coronary artery without angina pectoris Status: Acute Assessment and Plan: On atorvastatin but is being held due to inability to swallow. Subjective Date/time seen: Date of Service 01/11/21 07:31
[2021-01-11] MEDS: LACTATED RINGERS 1,000 ML 100 ML IV CONT ×2 (08:59→21:27)
[2021-01-11] MEDS: PANTOPRAZOLE SODIUM IV 40 MG VIAL IV PUSH (09:01)
[2021-01-11] MEDS: METOPROLOL TARTRATE INJ 5 MG/5 ML VIAL IV PUSH ×3 (09:08→21:19)
[2021-01-11 09:39] LABS: Blood Urea Nitrogen 41 mg/dL (9-20); Calcium 8.4 mg/dL (8.4-10.2); Carbon Dioxide > 40 mmol/L (22-30); Chloride 91 mmol/L (98-107); Estimated CRCL calculation 42 ml/min; Estimated Glomerular Filt Rate 59; Glucose 160 mg/dL (65-110); Potassium 3.4 mmol/L (3.4-5.0); Sodium 138 mmol/L (137-145)
[2021-01-11 11:55] LABS: Glucose Point of Care 136 mg/dl (65-105)
[2021-01-11 14:39] LABS: Rapid Plasma Reagin Non-Reactive (NonReactive)
[2021-01-11] MEDS: ENOXAPARIN 60 MG/0.6 ML SYRINGE SUB-Q (14:55)
[2021-01-11] MEDS: KCL 40 MEQ/0.9% SOD CHL 1,000 ML 100 ML IV CONT (14:55)
[2021-01-11] MEDS: KCL 40 MEQ/WATER 100 ML 100 ML 25 ML IVPB (15:36)
[2021-01-11] MEDS: ENALAPRILAT 1.25 MG/ML VIAL IV PUSH ×2 (17:03→23:16)
[2021-01-11 17:56] LABS: Glucose Point of Care 122 mg/dl (65-105)
[2021-01-12] VITALS (14 sets, daily range): BP systolic 139–194; BP diastolic 86–110; PULSE 84–103; RESP 14–18; TEMP 36.3–37.1; O2SAT 93–99
[2021-01-12] MEDS: hydrALAZINE HCL 20 MG/ML VIAL 10 MG IV PUSH (01:06)
[2021-01-12] MEDS: ENOXAPARIN 60 MG/0.6 ML SYRINGE SUB-Q (01:08)
[2021-01-12 01:27] LABS: Glucose Point of Care 120 mg/dl (65-105)
[2021-01-12 05:39] LABS: Basophils Percent Auto 0.2 % (0.2-1.2); Eosinophils Absolute Auto 0.1 K/mm3 (0-0.3); Eosinophils Percent Auto 0.5 % (0-4.4); Hematocrit 36.6 % (42.0-52.0); Hemoglobin 12.3 g/dL (14.0-18.0); Immature Granulocyte Absolute 0.04 K/mm3 (0.00-0.031); Immature Granulocyte Percent A 0.4 % (0-0.5); Lymphocytes Absolute Auto 1.26 K/mm3 (0.9-3.2); Lymphocytes Percent Auto 13.5 % (18.3-44.2); Mean Corpuscular HGB Conc 33.6 g/dl (32-36); Mean Corpuscular Hemoglobin 30.5 pg (26-34); Mean Corpuscular Volume 90.8 fl (80-100); Mean Platelet Volume 10.2 fl (7.4-10.4); Monocytes Absolute Auto 0.5 K/mm3 (0.1-0.6); Monocytes Percent Auto 4.9 % (2.6-8.5); Neutrophils Absolute Auto 7.5 K/mm3 (1.3-6.7); Neutrophils Percent Auto 80.5 % (45.5-73.1); Platelet Count Result 172 k/mm3 (150-375); Red Blood Count 4.03 M/mm3 (4.6-6.20); Red Cell Distribution Width 13.5 % (11.5-14.5); White Blood Count 9.3 K/mm3 (4.5-10.0)
[2021-01-12] MEDS: LACTATED RINGERS 1,000 ML 100 ML IV CONT (05:57)
[2021-01-12 06:01] LABS: Albumin Level 3.4 g/dL (3.5-5.1); Anion Gap 4 mmol/L (8-16); Blood Urea Nitrogen 28 mg/dL (9-20); Calcium 8.6 mg/dL (8.4-10.2); Carbon Dioxide 37 mmol/L (22-30); Chloride 96 mmol/L (98-107); Estimated CRCL calculation 52 ml/min; Estimated Glomerular Filt Rate > 60; Glucose 115 mg/dL (65-110); Phosphorus 2.2 mg/dL (2.5-4.5); Potassium 3.8 mmol/L (3.4-5.0); Sodium 137 mmol/L (137-145)
[2021-01-12] MEDS: ENALAPRILAT 1.25 MG/ML VIAL IV PUSH (06:13)
[2021-01-12] MEDS: METOPROLOL TARTRATE INJ 5 MG/5 ML VIAL IV PUSH (06:13)
[2021-01-12 06:31] LABS: Glucose Point of Care 103 mg/dl (65-105)
--- NOTE | 2021-01-12 06:39 | PM.PNNEP ---
Progress Note: A&P Assessment and Plan (1) Acute kidney injury: Code(s): N17.9 - Acute kidney failure, unspecified Status: Acute Assessment and Plan: The patient has acute kidney injury. His baseline creatinine is not known, however he had has improved quite a bit. His renal ultrasound is normal. Urine electrolytes are non pre renal. His creatinine has improved to normal. He is on LR at 100cc an hour. He says he is hungry. We can reduce the fluids tomorrow if he eats today. (2) Metabolic acidosis: Code(s): E87.2 - Acidosis Status: Acute Assessment and Plan: He has metabolic acidosis. This has resolved. (3) Shock: Code(s): R57.9 - Shock, unspecified Status: Acute Assessment and Plan: His blood pressure is doing better. (4) Benign prostatic hyperplasia: Code(s): N40.0 - Benign prostatic hyperplasia without lower urinary tract symptoms Status: Acute Assessment and Plan: He has a Jovel catheter in place (5) Gastroesophageal reflux disease: Code(s): K21.9 - Gastro-esophageal reflux disease without esophagitis Status: Acute Assessment and Plan: He is on pantoprazole and off sucralfate. (6) Paroxysmal atrial fibrillation: Code(s): I48.0 - Paroxysmal atrial fibrillation Status: Acute Assessment and Plan: His rhythm is regular now. He is on anti coagulants. (7) Hypertension: Code(s): I10 - Essential (primary) hypertension Status: Acute Assessment and Plan: Blood pressure is doing better (8) Type 2 diabetes mellitus: Code(s): E11.9 - Type 2 diabetes mellitus without complications Status: Acute Assessment and Plan: On Accu-Cheks and sliding-scale insulin Subjective Date/time seen: 01/12/21 06:39 Interval history: [place] is more awake today. He says he has some belly pain. No shortness of breath. Lying in bed comfortably. Review of Systems Cardiovascular: Cardiovascular: Reports no additional cardiovascular complaints Respiratory: Respiratory: Reports no additional respiratory complaints Gastrointestinal: Gastrointestinal: Reports no additional gastrointestinal complaints Genitourinary: Genitourinary: Reports no additional male genitourinary complaints Exam Narrative: WDWN in NAD skin no rash head ncat lungs clear cor reg no rub abd BS+ mildly tender. No rebound or HSM. ext no edema. Objective Data Vital Signs Vital Signs: Vital Signs - 24 hr 01/11/21 08:00 01/11/21 09:00 01/11/21 09:08 Temperature Pulse Rate 99 109 H 110 H Respiratory Rate Blood Pressure Pulse Oximetry 01/11/21 10:25 01/11/21 12:00 01/11/21 14:20 Temperature 36.6 C 36.7 C Pulse Rate 91 96 104 H Respiratory Rate 20 14 Blood Pressure 160/104 H 152/93 H Pulse Oximetry 100 97 01/11/21 14:55 01/11/21 16:00 01/11/21 17:25 Temperature 37.2 C Pulse Rate 96 91 97 Respiratory Rate 18 Blood Pressure 162/97 H Pulse Oximetry 99 01/11/21 21:05 01/11/21 21:19 01/11/21 21:30 Temperature 36.6 C Pulse Rate 63 65 94 Respiratory Rate 16 Blood Pressure 169/105 H Pulse Oximetry 93 01/11/21 22:14 01/12/21 00:00 01/12/21 00:45 Temperature 36.8 C Pulse Rate 91 88 Respiratory Rate 14 Blood Pressure 168/98 H 168/100 H Pulse Oximetry 99 01/12/21 04:00 01/12/21 05:55 01/12/21 06:13 Temperature 37.1 C Pulse Rate 92 99 99 Respiratory Rate 16 Blood Pressure 155/97 H Pulse Oximetry 93 Intake/Output Intake/Output: Intake & Output 01/09/21 01/10/21 01/11/21 01/12/21 23:59 23:59 23:59 23:59 Intake Total 2755 1500 1160 1020 Output Total 1800 1500 1425 1200 Balance 955 0 265 -180 Meds/Results Medications: Active Medications Generic Name Dose Route Start Last Admin Trade Name Freq PRN Reason Stop Dose Admin Dextrose 12.5 gm 01/09/21 09:28 Dextrose 50% 25 Gm/50 Ml Syringe IV P
[2021-01-12 07:53] LABS: Glucose Point of Care 94 mg/dl (65-105)
[2021-01-12] MEDS: TAMSULOSIN HCL 0.4 MG CAPSULE PO (08:58)
[2021-01-12] MEDS: PANTOPRAZOLE SODIUM IV 40 MG VIAL IV PUSH (08:58)
--- NOTE | 2021-01-12 09:36 | PM.IMPN ---
Progress Note: A&P Assessment and Plan (1) Septic shock: Code(s): A41.9 - Sepsis, unspecified organism; R65.21 - Severe sepsis with septic shock Status: Acute Assessment and Plan: Patient presented with AMS with hypotension refractory to IVF. Phenylephrine used as family wanted DNR and no central line. UA notes UTI w/ BUN > 100 and Creatinine 4 on presentation. Septic shock was likely due to urinary tract infection. This has resolved with treatment of UTI. BCX w/ no growth. UCX with growth of mixed chris so no sensitivities or speciation given. Will plan to complete antibiotic treatment after 4 days. -Ceftriaxone -Azithromycin (2) Acute metabolic encephalopathy: Code(s): G93.41 - Metabolic encephalopathy Status: Acute Assessment and Plan: Sepsis vs Uremia for the likely etiology. LFT and ammonia normal at presentation. Patient mentation seems to have improved with treatment of UTI and improvement of renal function but remains somewhat confused. Resumed home medication baclofen (3) Urinary tract infection: Code(s): N39.0 - Urinary tract infection, site not specified Status: Acute Assessment and Plan: UCX with mix chris recommending repeat, but antibiotic were already started. Will complete treatment of UTI as patient has had significant improvement in clinical status. -Continue ceftraixone (4) Acute renal failure: Code(s): N17.9 - Acute kidney failure, unspecified Status: Acute Assessment and Plan: Hx of BPH with urinary retention and given history of DM and HTN this is likely an acute exacerbation of chronic kidney disease. Chronic NSAID uses also likely to be contributing factor. Renal US w/ normal kidney w/o hydronephrosis. Improved today. -BMP daily -Appreciate recs from Nephrology (5) Benign prostatic hyperplasia: Code(s): N40.0 - Benign prostatic hyperplasia without lower urinary tract symptoms Status: Acute Assessment and Plan: Patient presented with urinary retention likely 2/2 to BPH. Continue tamsulosin. (6) Gastroesophageal reflux disease: Code(s): K21.9 - Gastro-esophageal reflux disease without esophagitis Status: Acute Assessment and Plan: Takes omeprazole 40 mg po daily at home. Continue PPI inpatient. (7) Chronic obstructive pulmonary disease: Code(s): J44.9 - Chronic obstructive pulmonary disease, unspecified Status: Acute Assessment and Plan: Not on any medication for this at this time. (8) Paroxysmal atrial fibrillation: Code(s): I48.0 - Paroxysmal atrial fibrillation Status: Acute Assessment and Plan: On apixaban and takes metoprolol 50 mg BID at nursing facility. With improvement of renal function will start therapeutic anticoagulation today. Previously on weight based enoxaparin due to poor renal function. -resume home medication (9) Hyperlipidemia: Code(s): E78.5 - Hyperlipidemia, unspecified Status: Acute Assessment and Plan: ON atorvastatin 20 mg po qhs. (10) Hypertension: Code(s): I10 - Essential (primary) hypertension Status: Acute Assessment and Plan: Takes amlodipine 10 mg po daily, lisinopril 20 mg and metoprolol 50 mg BID. (11) Type 2 diabetes mellitus: Code(s): E11.9 - Type 2 diabetes mellitus without complications Status: Acute Assessment and Plan: Patient takes metformin 1,000 mg BID at home. -Hold -accuchecks -[facility] (12) Coronary artery disease: Code(s): I25.10 - Atherosclerotic heart disease of [place] coronary artery without angina pectoris Status: Acute Assessment and Plan: On atorvastatin but is being held due to inability to swallow. (13) Abnormal CT scan: Code(s): R93.89 - Abnormal findings on diagnostic imaging of other specified body structures Status: Acute Assessment and Plan: CT scan shows
[2021-01-12] MEDS: METOPROLOL SUCCINATE EXT REL 50 MG TABCR PO (11:13)
[2021-01-12] MEDS: ASPIRIN 81 MG CHEWABLE TABLET PO (11:13)
--- NOTE | 2021-01-12 11:24 | PCSTNOTE ---
Please refer to the Bedside Swallow Evaluation in the EMR. Please note, silent aspiration cannot be ruled out at bedside.
[2021-01-12 11:40] LABS: Glucose Point of Care 117 mg/dl (65-105)
[2021-01-12] MEDS: amLODIPine BESYLATE 5 MG TABLET 10 MG PO (13:38)
[2021-01-12] MEDS: ISOSORBIDE MONONITRATE 30 MG TAB.ER.24H PO (13:38)
[2021-01-12] MEDS: DOCUSATE SODIUM 100 MG CAPSULE PO (13:38)
[2021-01-12] MEDS: BACLOFEN 5 MG TABLET PO ×2 (13:38→17:16)
--- NOTE | 2021-01-12 14:00 | PC.NURSE ---
Patient's blood pressure was 194/103. I gave the patient his scheduled Isosorbide and Amlodipine at 1338. PRN metoprolol was not given at this time due to receiving these medications. Will recheck in one hour and reassess need for PRN Metoprolol.
[2021-01-12 16:47] LABS: Glucose Point of Care 128 mg/dl (65-105)
[2021-01-12] MEDS: SUCRALFATE 1 GM TABLET PO (17:16)
[2021-01-12] MEDS: ATORVASTATIN 20 MG TABLET PO (20:20)
[2021-01-12 22:02] LABS: Glucose Point of Care 109 mg/dl (65-105)
[2021-01-13] VITALS (13 sets, daily range): BP systolic 128–154; BP diastolic 67–88; PULSE 81–98; RESP 14–20; TEMP 36.3–36.7; O2SAT 92–95
[2021-01-13 07:45] LABS: Glucose Point of Care 90 mg/dl (65-105)
[2021-01-13] MEDS: ASPIRIN 81 MG CHEWABLE TABLET PO (08:10)
[2021-01-13] MEDS: APIXABAN 2.5 MG TABLET PO (08:10)
[2021-01-13] MEDS: BACLOFEN 5 MG TABLET PO ×3 (08:10→16:58)
[2021-01-13] MEDS: ISOSORBIDE MONONITRATE 30 MG TAB.ER.24H PO (08:10)
[2021-01-13] MEDS: ESCITALOPRAM OXALATE 10 MG TABLET PO (08:10)
[2021-01-13] MEDS: TAMSULOSIN HCL 0.4 MG CAPSULE PO (08:10)
[2021-01-13] MEDS: amLODIPine BESYLATE 5 MG TABLET 10 MG PO (08:10)
[2021-01-13] MEDS: SUCRALFATE 1 GM TABLET PO ×2 (08:10→16:58)
[2021-01-13] MEDS: MONTELUKAST SODIUM 10 MG TABLET PO (08:11)
[2021-01-13] MEDS: METOPROLOL SUCCINATE EXT REL 50 MG TABCR PO (08:11)
[2021-01-13] MEDS: PANTOPRAZOLE 40 MG TABLET PO (08:11)
--- NOTE | 2021-01-13 08:54 | PM.IMPN ---
Progress Note: A&P Assessment and Plan (1) Septic shock: Code(s): A41.9 - Sepsis, unspecified organism; R65.21 - Severe sepsis with septic shock Status: Acute Assessment and Plan: Patient presented with AMS with hypotension refractory to IVF. Phenylephrine used as family wanted DNR and no central line. UA notes UTI w/ BUN > 100 and Creatinine 4 on presentation. Septic shock was likely due to urinary tract infection. This has resolved with treatment of UTI. BCX w/ no growth. UCX with growth of mixed chris so no sensitivities or speciation given. Will plan to complete antibiotic treatment after 3 days. probably switch antibiotic to oral in a.m. -Ceftriaxone -Azithromycin - probable discharge in a.m. (2) Acute metabolic encephalopathy: Code(s): G93.41 - Metabolic encephalopathy Status: Acute Assessment and Plan: Sepsis vs Uremia for the likely etiology. LFT and ammonia normal at presentation. Patient mentation seems to have improved with treatment of UTI and improvement of renal function but remains somewhat confused. Resumed home medication baclofen improved (3) Urinary tract infection: Code(s): N39.0 - Urinary tract infection, site not specified Status: Acute Assessment and Plan: UCX with mix chris recommending repeat, but antibiotic were already started. Will complete treatment of UTI as patient has had significant improvement in clinical status. -Continue antibiotics (4) Acute renal failure: Code(s): N17.9 - Acute kidney failure, unspecified Status: Acute Assessment and Plan: Hx of BPH with urinary retention and given history of DM and HTN this is likely an acute exacerbation of chronic kidney disease. Chronic NSAID uses also likely to be contributing factor. Renal US w/ normal kidney w/o hydronephrosis. Improved today. -BMP daily -Appreciate recs from Nephrology (5) Benign prostatic hyperplasia: Code(s): N40.0 - Benign prostatic hyperplasia without lower urinary tract symptoms Status: Acute Assessment and Plan: Patient presented with urinary retention likely 2/2 to BPH. Continue tamsulosin. (6) Gastroesophageal reflux disease: Code(s): K21.9 - Gastro-esophageal reflux disease without esophagitis Status: Acute Assessment and Plan: Takes omeprazole 40 mg po daily at home. Continue PPI inpatient. (7) Chronic obstructive pulmonary disease: Code(s): J44.9 - Chronic obstructive pulmonary disease, unspecified Status: Acute Assessment and Plan: Not on any medication for this at this time. (8) Paroxysmal atrial fibrillation: Code(s): I48.0 - Paroxysmal atrial fibrillation Status: Acute Assessment and Plan: On apixaban and takes metoprolol 50 mg BID at nursing facility. With improvement of renal function will start therapeutic anticoagulation today. Previously on weight based enoxaparin due to poor renal function. -resume home medication (9) Hyperlipidemia: Code(s): E78.5 - Hyperlipidemia, unspecified Status: Acute Assessment and Plan: ON atorvastatin 20 mg po qhs. (10) Hypertension: Code(s): I10 - Essential (primary) hypertension Status: Acute Assessment and Plan: Takes amlodipine 10 mg po daily, lisinopril 20 mg and metoprolol 50 mg BID. (11) Type 2 diabetes mellitus: Code(s): E11.9 - Type 2 diabetes mellitus without complications Status: Acute Assessment and Plan: Patient takes metformin 1,000 mg BID at home. -Hold -accuchecks -[facility] (12) Coronary artery disease: Code(s): I25.10 - Atherosclerotic heart disease of [place] coronary artery without angina pectoris Status: Acute Assessment and Plan: On atorvastatin but is being held due to inability to swallow. (13) Abnormal CT scan: Code(s): R93.89 - Abnormal findings on diagnostic imaging of other specif
[2021-01-13 09:57] LABS: Alanine Aminotransferase 22 U/L (4-50); Alkaline Phosphatase 49 U/L (38-126); Anion Gap 8 mmol/L (8-16); Aspartate Amino Transferase 30 U/L (17-59); Bilirubin,Total 1.2 mg/dL (0.2-1.3); Blood Urea Nitrogen 19 mg/dL (9-20); Calcium 8.4 mg/dL (8.4-10.2); Carbon Dioxide 31 mmol/L (22-30); Chloride 97 mmol/L (98-107); Estimated CRCL calculation 57 ml/min; Estimated Glomerular Filt Rate > 60; Glucose 109 mg/dL (65-110); Potassium 3.4 mmol/L (3.4-5.0); Sodium 136 mmol/L (137-145)
--- NOTE | 2021-01-13 10:10 | PM.PNNEP ---
Progress Note: A&P Assessment and Plan (1) Acute kidney injury: Code(s): N17.9 - Acute kidney failure, unspecified Status: Acute Assessment and Plan: The patient has acute kidney injury. His baseline creatinine is not known, however he had has improved quite a bit. His renal ultrasound is normal. Urine electrolytes are non pre renal. His creatinine has improved to normal. he is off his IV fluids. Renal will sign off (2) Metabolic acidosis: Code(s): E87.2 - Acidosis Status: Acute Assessment and Plan: He has metabolic acidosis. This has resolved. (3) Shock: Code(s): R57.9 - Shock, unspecified Status: Acute Assessment and Plan: His blood pressure is doing better. (4) Benign prostatic hyperplasia: Code(s): N40.0 - Benign prostatic hyperplasia without lower urinary tract symptoms Status: Acute Assessment and Plan: He has a Jovel catheter in place (5) Gastroesophageal reflux disease: Code(s): K21.9 - Gastro-esophageal reflux disease without esophagitis Status: Acute Assessment and Plan: He is on pantoprazole and off sucralfate. (6) Paroxysmal atrial fibrillation: Code(s): I48.0 - Paroxysmal atrial fibrillation Status: Acute Assessment and Plan: His rhythm is regular now. He is on anti coagulants. (7) Hypertension: Code(s): I10 - Essential (primary) hypertension Status: Acute Assessment and Plan: Blood pressure is doing better (8) Type 2 diabetes mellitus: Code(s): E11.9 - Type 2 diabetes mellitus without complications Status: Acute Assessment and Plan: On Accu-Cheks and sliding-scale insulin Subjective Date/time seen: 01/13/21 10:10 Interval history: Romeo is more awake today. He is not eating breakfast because he wants FISH. Lying in bed comfortably. Exam Narrative: WDWN in NAD skin no rash head ncat lungs clear bilaterally cor reg no rub or gallop abd BS+ mildly tender. No rebound or HSM. ext no edema. Objective Data Vital Signs Vital Signs: Vital Signs - 24 hr 01/12/21 11:13 01/12/21 12:00 01/12/21 14:00 Temperature 36.8 C Pulse Rate 88 88 85 Respiratory Rate 15 Blood Pressure 194/103 H Pulse Oximetry 94 01/12/21 15:03 01/12/21 16:00 01/12/21 20:00 Temperature Pulse Rate 99 103 H 89 Respiratory Rate Blood Pressure 156/110 H Pulse Oximetry 01/12/21 21:04 01/13/21 00:00 01/13/21 01:28 Temperature 36.3 C L 36.7 C Pulse Rate 85 97 98 Respiratory Rate 18 20 Blood Pressure 139/86 141/87 H Pulse Oximetry 94 93 01/13/21 04:00 01/13/21 05:56 01/13/21 08:00 Temperature 36.6 C Pulse Rate 98 95 90 Respiratory Rate 18 Blood Pressure 154/88 H Pulse Oximetry 95 01/13/21 08:11 Temperature Pulse Rate 96 Respiratory Rate Blood Pressure Pulse Oximetry Intake/Output Intake/Output: Intake & Output 01/10/21 01/11/21 01/12/21 01/13/21 23:59 23:59 23:59 23:59 Intake Total 1500 1160 1170 Output Total 1500 1425 2500 900 Balance 0 -265 -1330 -900 Meds/Results Medications: Active Medications Generic Name Dose Route Start Last Admin Trade Name Freq PRN Reason Stop Dose Admin Hydrocodone Bitart/Acetaminophen 1 tab 01/12/21 17:53 Hydrocodone/Acetaminophen (*Crx) 5-325 Mg Tablet PO BID PRN Pain Amlodipine Besylate 10 mg 01/12/21 13:03 01/13/21 08:10 Amlodipine Besylate 5 Mg Tablet PO 10 mg DAILY APRIL Administration Apixaban 2.5 mg 01/13/21 09:00 01/13/21 08:10 Apixaban 2.5 Mg Tablet PO 2.5 mg DAILY APRIL Administration Aspirin 81 mg 01/12/21 08:00 01/13/21 08:10 Aspirin 81 Mg Chewable Tablet PO 81 mg DAILY@0800 APRIL Administration Atorvastatin Calcium 20 mg 01/12/21 21:00 01/12/21 20:20 Atorvastatin 20 Mg Tablet PO 20 mg HS APRIL Administration Baclofen 5 mg 01/12/21 13:00 01/13/21 08:10 Baclo
--- NOTE | 2021-01-13 11:18 | PCNFU ---
Nutrition Follow-Up Complete: Inadequate Oral Intake as related to UTI as evidenced by poor po intake reported. Goal: Meet estimated nutritional needs Patient has limited progress toward goal. We will continue current goal. Pt current nutrition is Pureed, Level 4 with Ensure Compact BID. Last recorded weight is 64 kg, up from 61.2 kg. Bowel Motility:No BM reported. Labs Reviewed:no new labs to report. Meds Noted:Flomax, Toporol, Lipitor, Eliquis, Protonix, Singulair, Carafate. Skin: Deep Tissue-Sacrum. Additional Notes: Nutrition follow up. Patient had a Bedside Swallow yesterday-recommending pureed, Level 4 diet. Patient refused breakfast today. Diet supplements of Vanilla compact have been added BID for additional protein and calorie needs. PO intake encouraged. Monitoring: Will monitor every 3 days.
[2021-01-13 11:39] LABS: Glucose Point of Care 95 mg/dl (65-105)
[2021-01-13 11:47] LABS: Red Blood Cell Folate 553 ng/mL RBC (>280)
[2021-01-13 16:53] LABS: Glucose Point of Care 120 mg/dl (65-105)
[2021-01-13] MEDS: polyethylene glycoL 3350 17 GM POWD.PACK PO (16:59)
[2021-01-13] MEDS: ATORVASTATIN 20 MG TABLET PO (23:14)
[2021-01-13 23:32] LABS: Glucose Point of Care 104 mg/dl (65-105)
[2021-01-14] VITALS (13 sets, daily range): BP systolic 109–150; BP diastolic 71–88; PULSE 62–101; RESP 14–20; TEMP 36.2–37.1; O2SAT 94–97
[2021-01-14 06:22] LABS: Basophils Percent Auto 0.2 % (0.2-1.2); Eosinophils Absolute Auto 0.2 K/mm3 (0-0.3); Eosinophils Percent Auto 2.6 % (0-4.4); Hemoglobin 11.2 g/dL (14.0-18.0); Immature Granulocyte Absolute 0.03 K/mm3 (0.00-0.031); Immature Granulocyte Percent A 0.4 % (0-0.5); Lymphocytes Absolute Auto 1.15 K/mm3 (0.9-3.2); Lymphocytes Percent Auto 14.1 % (18.3-44.2); Mean Corpuscular HGB Conc 33.9 g/dl (32-36); Mean Corpuscular Hemoglobin 29.3 pg (26-34); Mean Corpuscular Volume 86.4 fl (80-100); Mean Platelet Volume 9.7 fl (7.4-10.4); Monocytes Absolute Auto 0.5 K/mm3 (0.1-0.6); Monocytes Percent Auto 6.4 % (2.6-8.5); Neutrophils Absolute Auto 6.2 K/mm3 (1.3-6.7); Neutrophils Percent Auto 76.3 % (45.5-73.1); Platelet Count Result 158 k/mm3 (150-375); Red Blood Count 3.82 M/mm3 (4.6-6.20); Red Cell Distribution Width 13.1 % (11.5-14.5); White Blood Count 8.2 K/mm3 (4.5-10.0)
[2021-01-14 06:31] LABS: Alanine Aminotransferase 46 U/L (4-50); Albumin Level 3.5 g/dL (3.5-5.1); Alkaline Phosphatase 57 U/L (38-126); Anion Gap 7 mmol/L (8-16); Aspartate Amino Transferase 55 U/L (17-59); Bilirubin,Total 1.4 mg/dL (0.2-1.3); Blood Urea Nitrogen 14 mg/dL (9-20); Calcium 8.7 mg/dL (8.4-10.2); Carbon Dioxide 33 mmol/L (22-30); Chloride 95 mmol/L (98-107); Estimated CRCL calculation 64 ml/min; Estimated Glomerular Filt Rate > 60; Glucose 116 mg/dL (65-110); Potassium 3.1 mmol/L (3.4-5.0); Sodium 135 mmol/L (137-145)
[2021-01-14 08:01] LABS: Glucose Point of Care 103 mg/dl (65-105)
[2021-01-14] MEDS: SUCRALFATE 1 GM TABLET PO ×2 (09:26→16:51)
[2021-01-14] MEDS: ESCITALOPRAM OXALATE 10 MG TABLET PO (09:26)
[2021-01-14] MEDS: amLODIPine BESYLATE 5 MG TABLET 10 MG PO ×2 (09:26→09:33)
[2021-01-14] MEDS: BACLOFEN 5 MG TABLET PO ×3 (09:26→16:51)
[2021-01-14] MEDS: ISOSORBIDE MONONITRATE 30 MG TAB.ER.24H PO (09:27)
[2021-01-14] MEDS: PANTOPRAZOLE 40 MG TABLET PO (09:27)
[2021-01-14] MEDS: MONTELUKAST SODIUM 10 MG TABLET PO (09:27)
[2021-01-14] MEDS: TAMSULOSIN HCL 0.4 MG CAPSULE PO (09:27)
[2021-01-14] MEDS: hydrALAZINE HCL 20 MG/ML VIAL 10 MG IV PUSH (09:28)
[2021-01-14] MEDS: METOPROLOL SUCCINATE EXT REL 100 MG TABCR PO (09:28)
--- NOTE | 2021-01-14 10:29 | PM.IMPN ---
Progress Note: A&P Assessment and Plan (1) Septic shock: Code(s): A41.9 - Sepsis, unspecified organism; R65.21 - Severe sepsis with septic shock Status: Acute Assessment and Plan: Patient presented with AMS with hypotension refractory to IVF. Phenylephrine used as family wanted DNR and no central line. UA notes UTI w/ BUN > 100 and Creatinine 4 on presentation. Septic shock was likely due to urinary tract infection. This has resolved with treatment of UTI. BCX w/ no growth. UCX with growth of mixed chris so no sensitivities or speciation given. Will plan to complete antibiotic treatment after 2 days. . -Ceftriaxone (2) Acute metabolic encephalopathy: Code(s): G93.41 - Metabolic encephalopathy Status: Acute Assessment and Plan: Sepsis with Uremia for the likely etiology. LFT and ammonia normal at presentation. Patient mentation seems to have improved with treatment of UTI and improvement of renal function but remains somewhat confused. Resumed home medication baclofen improved (3) Urinary tract infection: Code(s): N39.0 - Urinary tract infection, site not specified Status: Acute Assessment and Plan: UCX with mix chris recommending repeat, but antibiotic were already started. Will complete treatment of UTI as patient has had significant improvement in clinical status. -Continue antibiotics (4) Acute renal failure: Code(s): N17.9 - Acute kidney failure, unspecified Status: Acute Assessment and Plan: Hx of BPH with urinary retention and given history of DM and HTN this is likely an acute exacerbation of chronic kidney disease. Chronic NSAID uses also likely to be contributing factor. Renal US w/ normal kidney w/o hydronephrosis. Improved today. -BMP daily -Appreciate recs from Nephrology (5) Benign prostatic hyperplasia: Code(s): N40.0 - Benign prostatic hyperplasia without lower urinary tract symptoms Status: Acute Assessment and Plan: Patient presented with urinary retention likely 2/2 to BPH. Continue tamsulosin. (6) Gastroesophageal reflux disease: Code(s): K21.9 - Gastro-esophageal reflux disease without esophagitis Status: Acute Assessment and Plan: Takes omeprazole 40 mg po daily at home. Continue PPI inpatient. (7) Chronic obstructive pulmonary disease: Code(s): J44.9 - Chronic obstructive pulmonary disease, unspecified Status: Acute Assessment and Plan: Not on any medication for this at this time. (8) Paroxysmal atrial fibrillation: Code(s): I48.0 - Paroxysmal atrial fibrillation Status: Acute Assessment and Plan: On apixaban and takes metoprolol . Hold Eliquis and aspirin as patient was having abdominal pain and patient has aneurysm will monitor and re-evaluate in a.m. probably will resume Eliquis and aspirin in a.m. also I increased the dose of metoprolol to better control blood pressure. -resume home medication (9) Hyperlipidemia: Code(s): E78.5 - Hyperlipidemia, unspecified Status: Acute Assessment and Plan: ON atorvastatin 20 mg po qhs. (10) Hypertension: Code(s): I10 - Essential (primary) hypertension Status: Acute Assessment and Plan: Takes amlodipine 10 mg po daily, medication was adjusted for better control of blood pressure will blood pressure systolic of 120/80 or less (11) Type 2 diabetes mellitus: Code(s): E11.9 - Type 2 diabetes mellitus without complications Status: Acute Assessment and Plan: Patient takes metformin 1,000 mg BID at home. -Hold -accuchecks -SSI (12) Coronary artery disease: Code(s): I25.10 - Atherosclerotic heart disease of [place] coronary artery without angina pectoris Status: Acute Assessment and Plan: On atorvastatin but is being held due to inability to swallow. (13) Abnormal CT scan: Code(s): R93.89 - A
[2021-01-14 11:19] LABS: Glucose Point of Care 125 mg/dl (65-105)
[2021-01-14] MEDS: POTASSIUM CHLORIDE 20 MEQ TABLET 40 MEQ PO (12:22)
[2021-01-14] MEDS: hydrALAZINE HCL 25 MG TABLET PO ×3 (12:22→23:11)
--- NOTE | 2021-01-14 13:31 | PCPTNOTE ---
Spoke with RN, out of school hours care worker and OT, patient not appropriate for PT, W/C bound at baseline and unable to follow commands, D/C skilled PT orders.
[2021-01-14 16:34] LABS: Glucose Point of Care 161 mg/dl (65-105)
[2021-01-14] MEDS: ATORVASTATIN 20 MG TABLET PO (23:11)
[2021-01-14 23:46] LABS: Glucose Point of Care 184 mg/dl (65-105)
[2021-01-15] VITALS (10 sets, daily range): BP systolic 119–167; BP diastolic 72–91; PULSE 65–94; RESP 18–20; TEMP 36.5–36.9; O2SAT 90–95
[2021-01-15 06:00] LABS: Basophils Percent Auto 0.3 % (0.2-1.2); Eosinophils Absolute Auto 0.2 K/mm3 (0-0.3); Eosinophils Percent Auto 2.8 % (0-4.4); Hemoglobin 11.9 g/dL (14.0-18.0); Immature Granulocyte Absolute 0.02 K/mm3 (0.00-0.031); Immature Granulocyte Percent A 0.3 % (0-0.5); Lymphocytes Absolute Auto 1.12 K/mm3 (0.9-3.2); Lymphocytes Percent Auto 18.3 % (18.3-44.2); Mean Corpuscular Hemoglobin 30.3 pg (26-34); Mean Corpuscular Volume 89.1 fl (80-100); Mean Platelet Volume 10.2 fl (7.4-10.4); Monocytes Absolute Auto 0.5 K/mm3 (0.1-0.6); Monocytes Percent Auto 7.9 % (2.6-8.5); Neutrophils Absolute Auto 4.3 K/mm3 (1.3-6.7); Neutrophils Percent Auto 70.4 % (45.5-73.1); Platelet Count Result 173 k/mm3 (150-375); Red Blood Count 3.93 M/mm3 (4.6-6.20); Red Cell Distribution Width 13.4 % (11.5-14.5); White Blood Count 6.1 K/mm3 (4.5-10.0)
[2021-01-15 06:16] LABS: Sodium 137 mmol/L (137-145)
[2021-01-15 06:21] LABS: Alanine Aminotransferase 57 U/L (4-50); Albumin Level 3.6 g/dL (3.5-5.1); Alkaline Phosphatase 55 U/L (38-126); Anion Gap 4 mmol/L (8-16); Aspartate Amino Transferase 43 U/L (17-59); Blood Urea Nitrogen 14 mg/dL (9-20); Calcium 8.8 mg/dL (8.4-10.2); Carbon Dioxide 36 mmol/L (22-30); Chloride 97 mmol/L (98-107); Estimated CRCL calculation 64 ml/min; Estimated Glomerular Filt Rate > 60; Glucose 115 mg/dL (65-110); Potassium 3.2 mmol/L (3.4-5.0)
[2021-01-15 07:43] LABS: Glucose Point of Care 105 mg/dl (65-105)
[2021-01-15] MEDS: BACLOFEN 5 MG TABLET PO ×3 (10:19→16:43)
[2021-01-15] MEDS: hydrALAZINE HCL 25 MG TABLET PO ×3 (10:19→16:43)
[2021-01-15] MEDS: ESCITALOPRAM OXALATE 10 MG TABLET PO (10:19)
[2021-01-15] MEDS: amLODIPine BESYLATE 5 MG TABLET 10 MG PO (10:19)
[2021-01-15] MEDS: METOPROLOL SUCCINATE EXT REL 100 MG TABCR PO (10:20)
[2021-01-15] MEDS: ISOSORBIDE MONONITRATE 30 MG TAB.ER.24H PO (10:20)
[2021-01-15] MEDS: SUCRALFATE 1 GM TABLET PO ×2 (10:20→16:43)
[2021-01-15] MEDS: PANTOPRAZOLE 40 MG TABLET PO (10:20)
[2021-01-15] MEDS: MONTELUKAST SODIUM 10 MG TABLET PO (10:20)
[2021-01-15] MEDS: TAMSULOSIN HCL 0.4 MG CAPSULE PO (10:20)
[2021-01-15] MEDS: HYDROcodone/acetaminophen (*CRX) 5-325 MG TABLET 1 TAB PO (10:25)
[2021-01-15 11:37] LABS: Glucose Point of Care 179 mg/dl (65-105)
--- NOTE | 2021-01-15 13:02 | PCNFU ---
Nutrition Follow-Up Complete: Inadequate Oral Intake as related to UTI as evidenced by poor po intake reported. Goal: Meet estimated nutritional needs Patient has limited progress, will continue current goal. Pt current nutrition is Pureed, Level 4 with Ensure compact BID. Last recorded weight is 64.2 kg, up from 61.2 kg on admit. Bowel Motility:+BM reported 01/08 Labs Reviewed:Glu 115, K 3.2, Hct 35.0, Hgb 11.9 Meds Noted:Singulair, Protonix, Carafate, Lexapro, Lipitor, Rocephin, Eliquis, Norvasc, Toprol. Skin: Deep Tissue-Saccum. Additional Notes: Patient remains Pureed, Level 4 diet with Ensure compact BID providing an additional 220 kcals and 9 gms protein. Oral Intake has been poor 5-25% of most meals. PO intake is encouraged. Agree with diet orders. Monitoring: Will monitor every 3 days.
--- NOTE | 2021-01-15 14:03 | PM.IMPN ---
Progress Note: A&P Assessment and Plan (1) Septic shock: Code(s): A41.9 - Sepsis, unspecified organism; R65.21 - Severe sepsis with septic shock Status: Acute Assessment and Plan: Patient presented with AMS with hypotension refractory to IVF. Phenylephrine used as family wanted DNR and no central line. UA notes UTI w/ BUN > 100 and Creatinine 4 on presentation. Septic shock was likely due to urinary tract infection. This has resolved with treatment of UTI. BCX w/ no growth. UCX with growth of mixed chris so no sensitivities or speciation given. Will plan to complete antibiotic treatment after 2 days. . -Ceftriaxone (2) Acute metabolic encephalopathy: Code(s): G93.41 - Metabolic encephalopathy Status: Acute Assessment and Plan: Sepsis with Uremia for the likely etiology. LFT and ammonia normal at presentation. Patient mentation seems to have improved with treatment of UTI and improvement of renal function but remains somewhat confused. Resumed home medication baclofen improved (3) Urinary tract infection: Code(s): N39.0 - Urinary tract infection, site not specified Status: Acute Assessment and Plan: UCX with mix chris recommending repeat, but antibiotic were already started. Will complete treatment of UTI as patient has had significant improvement in clinical status. -Continue antibiotics (4) Acute renal failure: Code(s): N17.9 - Acute kidney failure, unspecified Status: Acute Assessment and Plan: Hx of BPH with urinary retention and given history of DM and HTN this is likely an acute exacerbation of chronic kidney disease. Chronic NSAID uses also likely to be contributing factor. Renal US w/ normal kidney w/o hydronephrosis. resolved creatinine of 4 on admission nephrology was consulted during the hospital stay (5) Benign prostatic hyperplasia: Code(s): N40.0 - Benign prostatic hyperplasia without lower urinary tract symptoms Status: Acute Assessment and Plan: Patient presented with urinary retention likely 2/2 to BPH. Continue tamsulosin. (6) Gastroesophageal reflux disease: Code(s): K21.9 - Gastro-esophageal reflux disease without esophagitis Status: Acute Assessment and Plan: Takes omeprazole 40 mg po daily at home. Continue PPI inpatient. (7) Chronic obstructive pulmonary disease: Code(s): J44.9 - Chronic obstructive pulmonary disease, unspecified Status: Acute Assessment and Plan: Not on any medication for this at this time. (8) Paroxysmal atrial fibrillation: Code(s): I48.0 - Paroxysmal atrial fibrillation Status: Acute Assessment and Plan: On apixaban and takes metoprolol . Hold Eliquis and aspirin as patient was having abdominal pain and patient has aneurysm will monitor and re-evaluate in a.m. probably will resume Eliquis and aspirin in a.m. also I increased the dose of metoprolol to better control blood pressure. -resume home medication (9) Hyperlipidemia: Code(s): E78.5 - Hyperlipidemia, unspecified Status: Acute Assessment and Plan: ON atorvastatin 20 mg po qhs. (10) Hypertension: Code(s): I10 - Essential (primary) hypertension Status: Acute Assessment and Plan: Takes amlodipine 10 mg po daily, medication was adjusted for better control of blood pressure will blood pressure systolic of 120/80 or less (11) Type 2 diabetes mellitus: Code(s): E11.9 - Type 2 diabetes mellitus without complications Status: Acute Assessment and Plan: Patient takes metformin 1,000 mg BID at home. -Hold -accuchecks -SSI (12) Coronary artery disease: Code(s): I25.10 - Atherosclerotic heart disease of [place] coronary artery without angina pectoris Status: Acute Assessment and Plan: On atorvastatin but is being held due to inability to swallow. (13) Abnormal CT scan:
--- NOTE | 2021-01-15 16:17 | PM.DS ---
DS: Admitting Diagnosis Discharge Date 01/15/2021 Admitting Diagnosis Septic shock DS: Discharge Diagnosis Discharge Diagnosis (1) Septic shock: Code(s): A41.9 - Sepsis, unspecified organism; R65.21 - Severe sepsis with septic shock Status: Acute Assessment and Plan: Patient presented with altered mental status with hypotension refractory to IVF. Phenylephrine used as family wanted DNR and no central line. UA notes UTI w/ BUN > 100 and Creatinine 4 on presentation. Septic shock was likely due to urinary tract infection. This has resolved with treatment of UTI. BCX w/ no growth. UCX with growth of mixed chris so no sensitivities or speciation given. He was treated with ceftriaxone and finished 7 days course of antibiotic course during the hospital stay. (2) Acute metabolic encephalopathy: Code(s): G93.41 - Metabolic encephalopathy Status: Acute Assessment and Plan: Sepsis with Uremia for the likely etiology. LFT and ammonia normal at presentation. Patient mentation seems to have improved with treatment of UTI and improvement of renal function but remains somewhat confused. Resumed home medication baclofen improved (3) Urinary tract infection: Code(s): N39.0 - Urinary tract infection, site not specified Status: Acute Assessment and Plan: UCX with mix chris recommending repeat, but antibiotic were already started. Will complete treatment of UTI as patient has had significant improvement in clinical status. -Continue antibiotics (4) Acute renal failure: Code(s): N17.9 - Acute kidney failure, unspecified Status: Acute Assessment and Plan: Hx of BPH with urinary retention and given history of DM and HTN this is likely an acute exacerbation of chronic kidney disease. Chronic NSAID uses also likely to be contributing factor. Renal US w/ normal kidney w/o hydronephrosis. resolved creatinine of 4 on admission nephrology was consulted during the hospital stay (5) Benign prostatic hyperplasia: Code(s): N40.0 - Benign prostatic hyperplasia without lower urinary tract symptoms Status: Acute Assessment and Plan: Patient presented with urinary retention likely 2/2 to BPH. Continue tamsulosin. (6) Gastroesophageal reflux disease: Code(s): K21.9 - Gastro-esophageal reflux disease without esophagitis Status: Acute Assessment and Plan: Takes omeprazole 40 mg po daily at home. Continue PPI inpatient. (7) Chronic obstructive pulmonary disease: Code(s): J44.9 - Chronic obstructive pulmonary disease, unspecified Status: Acute Assessment and Plan: Not on any medication for this at this time. (8) Paroxysmal atrial fibrillation: Code(s): I48.0 - Paroxysmal atrial fibrillation Status: Acute Assessment and Plan: On apixaban and takes metoprolol . Resumed Eliquis at discharge metoprolol dose has been increased to 100 mg daily during the hospital stay (9) Hyperlipidemia: Code(s): E78.5 - Hyperlipidemia, unspecified Status: Acute Assessment and Plan: ON atorvastatin 20 mg po qhs. (10) Hypertension: Code(s): I10 - Essential (primary) hypertension Status: Acute Assessment and Plan: Takes amlodipine 10 mg po daily, medication was adjusted for better control of blood pressure will blood pressure systolic of 120/80 or less Blood pressure controlled on current medication discharge med rec reconciled (11) Type 2 diabetes mellitus: Code(s): E11.9 - Type 2 diabetes mellitus without complications Status: Acute Assessment and Plan: Patient takes metformin 1,000 mg BID at home. Held during hospital stay -accuchecks -SSI Will resume metformin at discharge A1c is 6.3 (12) Coronary artery disease: Code(s): I25.10 - Atherosclerotic heart disease of [place] coronary artery without angina pectoris Status: Acute
[2021-01-15 16:30] LABS: Glucose Point of Care 175 mg/dl (65-105)
[2021-01-15 17:17] LABS: EDCOVIDSCREEN Negative (Negative)
== END 2021-01-15 17:45 | DRG 871 ==
LOC: ANHED 12:47 → ANHICU 21:32 → ANH2MED 01-11 13:34 → ANHICU 01-18 15:48
PROVIDERS: Emergency Medicine; Family Medicine; Internal Medicine; Internal Medicine Nephrology; Physician Assistant; Admitting Provider Internal Medicine; Emergency Provider Emergency Medicine; Visit Provider Internal Medicine
DX: A41.9 Sepsis, unspecified organism (principal); R65.21 Severe sepsis with septic shock; G93.41 Metabolic encephalopathy; R57.1 Hypovolemic shock; J18.9 Pneumonia, unspecified organism; N39.0 Urinary tract infection, site not specified; N17.9 Acute kidney failure, unspecified; J44.0 Chronic obstructive pulmonary disease with (acute) lower respiratory infection; Z20.822 Contact with and (suspected) exposure to COVID-19; N40.1 Benign prostatic hyperplasia with lower urinary tract symptoms; R33.9 Retention of urine, unspecified; I12.9 Hypertensive chronic kidney disease with stage 1 through stage 4 chronic kidney disease, or unspecified chronic kidney disease; E11.22 Type 2 diabetes mellitus with diabetic chronic kidney disease; N18.9 Chronic kidney disease, unspecified; K21.9 Gastro-esophageal reflux disease without esophagitis; J44.9 Chronic obstructive pulmonary disease, unspecified; I48.0 Paroxysmal atrial fibrillation; E78.5 Hyperlipidemia, unspecified; E86.0 Dehydration; I25.10 Atherosclerotic heart disease of native coronary artery without angina pectoris; I71.4 Abdominal aortic aneurysm, without rupture; I72.3 Aneurysm of iliac artery; Z66 Do not resuscitate; M19.90 Unspecified osteoarthritis, unspecified site; F41.8 Other specified anxiety disorders; E55.9 Vitamin D deficiency, unspecified; Z87.891 Personal history of nicotine dependence; Z79.01 Long term (current) use of anticoagulants; Z90.49 Acquired absence of other specified parts of digestive tract; Z95.5 Presence of coronary angioplasty implant and graft
CPT/HCPCS: 36415; 36600; 51701; 70450; 71045; 74174; 74176; 76775; 80048; 80053; 80069; 80307; 81001; 82140; 82533; 82550; 82570; 82607; 82747; 82805; 82948; 83036; 83605; 83735; 84100; 84133; 84156; 84300; 84439; 84443; 84480; 85025; 85610; 85652; 85730; 86140; 86592; 86703; 87040; 87086; 87088; 87426; 92610; 93005; 96361; 96365; 96375; 97165; 99285; A9270; C9113; C9803; G0432; J0131; J0360; J0456; J0696; J1650; J2310; J2370; J3480; J7030; J7040; J7060; J7070; J7120; Q9967